=== PATIENT | female | born 1935 | race Caucasian/White ===

== ENCOUNTER 2024-04-03 06:19 | Day surgery (SDC) | payer MEDICARE ==
[2024-03-29 11:14] VITALS: BMI 23.0
[2024-04-03] MEDS ORDERED: PROPOFOL 20 ML ONE (07:21)
[2024-04-03] MEDS ORDERED: Lidocaine 1% PF 5 ML VIAL ONE (07:21)
[2024-04-03] MEDS ORDERED: Labetalol HCl 100 MG/20 ML VIAL ONE (08:18)
[2024-04-03] MEDS ORDERED: Pantoprazole 40 MG VIAL IVP SCH (09:15)
== END 2024-04-03 09:55 | disposition home or self-care (01) ==
LOC: SDC 06:19
PROVIDERS: ATTEND Internal Medicine Gastroenterology
PROC: 0W3P8ZZ Control Bleeding in Gastrointestinal Tract, Via Natural or Artificial Opening Endoscopic (ICD-10-PCS; principal; 2024-04-03)
DX: K31.819 Angiodysplasia of stomach and duodenum without bleeding (principal); D50.9 Iron deficiency anemia, unspecified; R19.5 Other fecal abnormalities; K21.9 Gastro-esophageal reflux disease without esophagitis; I10 Essential (primary) hypertension; Z90.710 Acquired absence of both cervix and uterus; Z90.49 Acquired absence of other specified parts of digestive tract; Z88.0 Allergy status to penicillin; Z88.1 Allergy status to other antibiotic agents; Z88.5 Allergy status to narcotic agent; Z88.6 Allergy status to analgesic agent; Z88.7 Allergy status to serum and vaccine; Z88.8 Allergy status to other drugs, medicaments and biological substances
CPT/HCPCS: 43255; C9113; J2704